=== PATIENT | male | born 1960 | race Caucasian/White ===

== ENCOUNTER 2020-06-17 00:50 | Inpatient (IN) ==
[2020-06-17] MEDS ORDERED: 0.9 % Sodium Chloride 1,000 ML IVC ONE ×2 (00:59→03:20)
[2020-06-17 01:24] LABS: ABG Base Excess -5 mEq/L (-2 to 3); ABG HCO3 18 mEq/L (21-27); ABG Oxygen Saturation 96 % (95-98); ABG PCO2 29 mmHg (35-45); ABG PH 7.41 pH Units (7.32-7.45); ABG PO2 79 mmHg (85-104); ABG TCO2 19 mEq/L (20-26)
[2020-06-17 01:39] LABS: INR 1.2; Prothrombin Time 13.9 Seconds (9.4-12.1)
[2020-06-17 01:49] LABS: Basophils # 0.1 K/mcL (0.0-0.2); Basophils % 0.7 %; Eosinophils # 0.1 K/mcL (0.0-0.6); Eosinophils % 0.7 %; Hematocrit 48.3 % (37.5-50.1); Hemoglobin 17.1 g/dL (12.9-16.9); Immature Granulocytes % 0.4 % (0-4); Lymphocytes # 1.3 K/mcL (0.6-4.6); Lymphocytes % 11.3 %; Mean Corpuscular HGB Conc 35.4 g/dL (31.6-35.5); Mean Corpuscular Hemoglobin 30.5 pg (28.0-33.3); Mean Corpuscular Volume 86.3 fL (83.0-100.0); Mean Platelet Volume 10.4 fL (9.4-12.4); Monocytes # 0.5 K/mcL (0.0-1.3); Monocytes % 4.6 %; Neutrophils # 9.2 K/mcL (1.6-8.9); Platelet Count 399 K/mcL (140-400); Red Cell Distribution Width 13.4 % (11.5-14.5); Segmented Neutrophils % 82.3 %; White Blood Count 11.2 K/mcL (4.3-11.1)
[2020-06-17 01:51] LABS: Troponin I 0.03 ng/mL (< 0.04)
[2020-06-17 01:56] LABS: Alanine Aminotransferase 12 Units/L (7-52); Albumin/Globulin Ratio 0.9 (1.1-2.2); Alkaline Phosphatase 126 Units/L (34-104); Aspartate Amino Transferase 11 Units/L (13-39); BUN/Creatinine Ratio 9 (6-26); Bilirubin,Direct 0.2 mg/dL (0.0-0.2); Bilirubin,Indirect 0.5 mg/dL (0.0-1.0); Bilirubin,Total 0.7 mg/dL (0.3-1.0); Blood Urea Nitrogen 24 mg/dL (8-23); Calcium 10.3 mg/dL (8.6-10.3); Carbon Dioxide 23 mEq/L (23-29); Chloride 89 mEq/L (98-107); Ethanol < 10 mg/dL (Less than 10); Globulin 4.7 g/dL (2.4-3.5); Glucose 144 mg/dL (70-105); Lipase 122 Units/L (11-82); Osmolality,Calculated 271 (280-300); Potassium 3.3 mEq/L (3.5-5.1); Sodium 127 mEq/L (136-145); Total Protein 8.7 g/dL (6.4-8.9); eGFR For African Americans 32 (> 60); eGFR For Non-African Americans 26 (> 60)
[2020-06-17] MEDS ORDERED: Potassium Chloride Elixir 20 MEQ/15 ML UDC PO ONE (03:20)
[2020-06-17 03:45] LABS: Bilirubin,Urine Small (Negative); Blood,Urine Trace-intact (Negative); Clarity,Urine Cloudy (Clear); Color,Urine Dark Yellow (Yellow); Glucose,Urine (UA) Normal (Normal); Ketones,Urine Trace mg/dL (Negative); Leukocyte Esterase,Urine Negative (Negative); Nitrite,Urine Negative (Negative); PH,Urine 5.5 pH Units (5.0-8.0); Protein,Urine >=300 mg/dL (Neg-Trace); Specific Gravity,Urine >= 1.030 (1.010-1.025); Urobilinogen,Urine Normal (Normal)
[2020-06-17] MEDS ORDERED: 0.9 % Sodium Chloride 1,000 ML IVC SCH ×2 (03:45→05:23)
[2020-06-17 03:53] LABS: Broad Casts,Urine Few per lpf (None Seen); Granular Casts,Urine Few per lpf (None Seen)
[2020-06-17 03:54] LABS: Bacteria,Urine Many per hpf (None-Few); Squamous Epithelial Cell,Urine Moderate per hpf (None-Few)
[2020-06-17 03:59] LABS: Hyaline Casts,Urine Few per lpf (None Seen); Renal Epithelial Cells,Urine Few per hpf (None-Few); Transitional Epi Cells,Urine Few per hpf (None-Few)
[2020-06-17 04:03] LABS: Mucus,Urine Moderate per lpf (None-Few); RBC,Urine 0-3 per hpf (0-3); WBC,Urine 0-3 per hpf (0-3)
[2020-06-17 04:07] LABS: Amphetamine Screen,Urine Positive ng/mL (Cutoff=1000); Barbiturate Screen,Urine Negative ng/mL (Cutoff=200); Benzodiazepines Screen,Urine Negative ng/mL (Cutoff=200); Cannabinoid Screen,Urine Negative ng/mL (Cutoff = 50); Cocaine Screen,Urine Negative ng/mL (Cutoff= 300); Opiate Screen,Urine Negative ng/mL (Cutoff=300); Phencyclidine Screen,Urine Negative ng/mL (Cutoff=25)
[2020-06-17] MEDS ORDERED: Naloxone 0.4 MG/ML INJ IVP PRN ×2 (05:23→08:36)
[2020-06-17] MEDS ORDERED: Ondansetron 4 MG/2 ML VIAL IVP PRN (05:23)
[2020-06-17] MEDS: Acetaminophen 325 MG TABLET PO PRN ×2 (05:53→20:15)
[2020-06-17] MEDS ORDERED: *HR* LORazepam 2 MG/ML VIAL IVP PRN (08:36)
[2020-06-17] MEDS: 0.9 % Sodium Chloride 1,000 ML IVC SCH ×5 (09:13→23:13)
[2020-06-17] MEDS: Folic Acid 1 MG TABLET PO SCH (09:17)
[2020-06-17] MEDS: THIAMINE IVPB SCH (09:23)
[2020-06-17] MEDS: SODIUM CHLORIDE 0.9% IVPB SCH (09:23)
[2020-06-17 14:05] LABS: Calcium 9.6 mg/dL (8.6-10.3); Phosphorous 3.6 mg/dL (2.7-4.5)
[2020-06-17] MEDS: *HR* Heparin 5,000 UNIT/ML VIAL SQ SCH ×2 (14:26→20:09)
[2020-06-17 17:08] LABS: ABG Base Excess 0 mEq/L (-2 to 3); ABG HCO3 24 mEq/L (21-27); ABG Oxygen Saturation 95 % (95-98); ABG PCO2 33 mmHg (35-45); ABG PH 7.46 pH Units (7.32-7.45); ABG PO2 71 mmHg (85-104); ABG TCO2 25 mEq/L (20-26)
[2020-06-18] MEDS: *HR* Heparin 5,000 UNIT/ML VIAL SQ SCH ×3 (05:06→20:17)
[2020-06-18] MEDS: 0.9 % Sodium Chloride 1,000 ML IVC SCH ×4 (06:18→16:13)
[2020-06-18 07:59] LABS: Basophils # 0.1 K/mcL (0.0-0.2); Basophils % 1.6 %; Eosinophils # 0.2 K/mcL (0.0-0.6); Eosinophils % 2.8 %; Hematocrit 38.7 % (37.5-50.1); Immature Granulocytes % 0.1 % (0-4); Lymphocytes # 2.2 K/mcL (0.6-4.6); Lymphocytes % 32.7 %; Mean Corpuscular HGB Conc 33.9 g/dL (31.6-35.5); Mean Corpuscular Volume 88.6 fL (83.0-100.0); Mean Platelet Volume 10.5 fL (9.4-12.4); Monocytes # 0.5 K/mcL (0.0-1.3); Monocytes % 6.9 %; Neutrophils # 3.8 K/mcL (1.6-8.9); Platelet Count 297 K/mcL (140-400); Red Blood Count 4.37 M/mcL (4.19-5.50); Red Cell Distribution Width 13.7 % (11.5-14.5); Segmented Neutrophils % 55.9 %; White Blood Count 6.8 K/mcL (4.3-11.1)
[2020-06-18 08:18] LABS: Hemoglobin 13.1 g/dL (12.9-16.9)
[2020-06-18 08:23] LABS: Potassium 4.2 mEq/L (3.5-5.1)
[2020-06-18 08:24] LABS: Albumin 2.9 g/dL (3.5-5.7); Albumin/Globulin Ratio 0.9 (1.1-2.2); Bilirubin,Total 0.4 mg/dL (0.3-1.0); Calcium 8.6 mg/dL (8.6-10.3); Globulin 3.1 g/dL (2.4-3.5)
[2020-06-18] MEDS: SODIUM CHLORIDE 0.9% IVPB SCH (08:39)
[2020-06-18] MEDS: THIAMINE IVPB SCH (08:39)
[2020-06-18] MEDS: Folic Acid 1 MG TABLET PO SCH (08:42)
[2020-06-18] MEDS: Aspirin Enteric Coated 81 MG Tablet PO SCH (08:42)
[2020-06-18] MEDS: Finasteride 5 MG TABLET PO SCH (08:43)
[2020-06-18] MEDS ORDERED: Nicotine 2 MG GUM BC PRN (15:36)
[2020-06-18] MEDS: Acetaminophen 325 MG TABLET PO PRN (20:17)
[2020-06-18 21:57] LABS: Protein/Creatinine Ratio,Urine 0.29 mg/mg (0.00-0.20)
[2020-06-19] MEDS: 0.9 % Sodium Chloride 1,000 ML IVC SCH ×3 (02:06→21:07)
[2020-06-19] MEDS: *HR* Heparin 5,000 UNIT/ML VIAL SQ SCH ×3 (06:22→20:27)
[2020-06-19 07:21] LABS: Albumin/Globulin Ratio 0.9 (1.1-2.2); Bilirubin,Total 0.4 mg/dL (0.3-1.0); Calcium 8.7 mg/dL (8.6-10.3); Globulin 3.3 g/dL (2.4-3.5); Potassium 4.2 mEq/L (3.5-5.1); Total Protein 6.3 g/dL (6.4-8.9)
[2020-06-19] MEDS: THIAMINE IVPB SCH (07:56)
[2020-06-19] MEDS: SODIUM CHLORIDE 0.9% IVPB SCH (07:56)
[2020-06-19] MEDS: Finasteride 5 MG TABLET PO SCH (08:01)
[2020-06-19] MEDS: Folic Acid 1 MG TABLET PO SCH (08:01)
[2020-06-19] MEDS: Aspirin Enteric Coated 81 MG Tablet PO SCH (08:01)
[2020-06-19] MEDS ORDERED: hydrALAZINE 25 MG TABLET PO SCH (08:52)
[2020-06-19] MEDS ORDERED: Metoprolol 100 MG TABLET PO SCH (09:00)
[2020-06-19] MEDS: amLODIPine 5 MG TABLET PO SCH (09:47)
[2020-06-19] MEDS ORDERED: *HR* LORazepam 1 MG TABLET PO ONE (11:38)
[2020-06-19] MEDS: Isosorbide MONOnitrate (24 HR) 30 MG TAB.ER.24H PO SCH (12:01)
[2020-06-19] MEDS: hydrALAZINE 25 MG TABLET PO SCH ×2 (15:35→23:50)
[2020-06-19] MEDS ORDERED: Haloperidol Lactate 5 MG/ML VIAL IM PRN (16:09)
[2020-06-19] MEDS ORDERED: *HR* LORazepam 2 MG/ML VIAL IVP ONE (16:12)
[2020-06-19] MEDS ORDERED: *HR* LORazepam 2 MG/ML VIAL IVP PRN (16:13)
[2020-06-19] MEDS: Gabapentin 300 MG CAPSULE PO SCH ×2 (16:40→20:27)
[2020-06-19] MEDS: Ringers Solution, Lactated 1,000 ML IVC SCH (16:44)
[2020-06-20] MEDS: *HR* Heparin 5,000 UNIT/ML VIAL SQ SCH ×3 (05:12→20:29)
[2020-06-20] MEDS: Ringers Solution, Lactated 1,000 ML IVC SCH (05:12)
[2020-06-20 05:47] LABS: Albumin 3.2 g/dL (3.5-5.7); Albumin/Globulin Ratio 0.9 (1.1-2.2); Bilirubin,Total 0.7 mg/dL (0.3-1.0); Calcium 9.2 mg/dL (8.6-10.3); Globulin 3.5 g/dL (2.4-3.5); Potassium 3.7 mEq/L (3.5-5.1); Total Protein 6.7 g/dL (6.4-8.9)
[2020-06-20] MEDS: Isosorbide MONOnitrate (24 HR) 30 MG TAB.ER.24H PO SCH (09:32)
[2020-06-20] MEDS: Thiamine (B-1) 100 MG TABLET PO SCH (09:32)
[2020-06-20] MEDS: amLODIPine 5 MG TABLET PO SCH (09:33)
[2020-06-20] MEDS: Aspirin Enteric Coated 81 MG Tablet PO SCH (09:33)
[2020-06-20] MEDS: hydrALAZINE 25 MG TABLET PO SCH ×3 (09:33→23:25)
[2020-06-20] MEDS: Finasteride 5 MG TABLET PO SCH (09:33)
[2020-06-20] MEDS: Folic Acid 1 MG TABLET PO SCH (09:33)
[2020-06-20] MEDS: Gabapentin 300 MG CAPSULE PO SCH (20:29)
[2020-06-21] MEDS: *HR* Heparin 5,000 UNIT/ML VIAL SQ SCH ×3 (05:43→21:08)
[2020-06-21] MEDS: Aspirin Enteric Coated 81 MG Tablet PO SCH (08:42)
[2020-06-21] MEDS: Isosorbide MONOnitrate (24 HR) 30 MG TAB.ER.24H PO SCH (08:42)
[2020-06-21] MEDS: Finasteride 5 MG TABLET PO SCH (08:42)
[2020-06-21] MEDS: Thiamine (B-1) 100 MG TABLET PO SCH (08:42)
[2020-06-21] MEDS: amLODIPine 5 MG TABLET PO SCH (08:42)
[2020-06-21] MEDS: Folic Acid 1 MG TABLET PO SCH (08:42)
[2020-06-21] MEDS: hydrALAZINE 25 MG TABLET PO SCH ×3 (08:42→23:31)
[2020-06-21] MEDS: Acetaminophen 325 MG TABLET PO PRN ×2 (08:43→23:31)
[2020-06-21] MEDS ORDERED: polyethylene glycoL 3350 17 GM POWD.PACK PO ONE (09:00)
[2020-06-21] MEDS ORDERED: Isosorbide MONOnitrate (24 HR) 30 MG TAB.ER.24H PO ONE (09:03)
[2020-06-21 09:32] LABS: Basophils # 0.1 K/mcL (0.0-0.2); Basophils % 1.6 %; Eosinophils # 0.3 K/mcL (0.0-0.6); Eosinophils % 4.6 %; Hematocrit 41.1 % (37.5-50.1); Immature Granulocytes % 0.2 % (0-4); Lymphocytes # 1.8 K/mcL (0.6-4.6); Lymphocytes % 28.1 %; Mean Corpuscular HGB Conc 34.1 g/dL (31.6-35.5); Mean Corpuscular Hemoglobin 30.1 pg (28.0-33.3); Mean Corpuscular Volume 88.4 fL (83.0-100.0); Mean Platelet Volume 10.6 fL (9.4-12.4); Monocytes # 0.4 K/mcL (0.0-1.3); Monocytes % 6.4 %; Neutrophils # 3.7 K/mcL (1.6-8.9); Platelet Count 293 K/mcL (140-400); Red Blood Count 4.65 M/mcL (4.19-5.50); Red Cell Distribution Width 13.6 % (11.5-14.5); Segmented Neutrophils % 59.1 %; White Blood Count 6.3 K/mcL (4.3-11.1)
[2020-06-21 09:44] LABS: Albumin 3.3 g/dL (3.5-5.7); Albumin/Globulin Ratio 0.9 (1.1-2.2); Bilirubin,Total 0.5 mg/dL (0.3-1.0); Calcium 9.2 mg/dL (8.6-10.3); Globulin 3.6 g/dL (2.4-3.5); Magnesium 1.7 mg/dL (1.6-2.6); Potassium 3.4 mEq/L (3.5-5.1); Total Protein 6.9 g/dL (6.4-8.9)
[2020-06-21] MEDS ORDERED: Ringers Solution, Lactated 1,000 ML IVC ONE (11:54)
[2020-06-21] MEDS ORDERED: hydrALAZINE 25 MG TABLET PO SCH (16:00)
[2020-06-21] MEDS: Gabapentin 300 MG CAPSULE PO SCH (21:07)
[2020-06-22] MEDS: hydrALAZINE 25 MG TABLET PO SCH ×4 (05:29→23:44)
[2020-06-22] MEDS: *HR* Heparin 5,000 UNIT/ML VIAL SQ SCH ×3 (05:30→20:49)
[2020-06-22] MEDS: Acetaminophen 325 MG TABLET PO PRN (09:20)
[2020-06-22] MEDS: Aspirin Enteric Coated 81 MG Tablet PO SCH (09:20)
[2020-06-22] MEDS: Thiamine (B-1) 100 MG TABLET PO SCH (09:20)
[2020-06-22] MEDS: Folic Acid 1 MG TABLET PO SCH (09:21)
[2020-06-22] MEDS: Finasteride 5 MG TABLET PO SCH (09:21)
[2020-06-22] MEDS: amLODIPine 5 MG TABLET PO SCH (09:21)
[2020-06-22] MEDS: Isosorbide MONOnitrate (24 HR) 60 MG TAB.ER.24H PO SCH (09:21)
[2020-06-22] MEDS: Gabapentin 300 MG CAPSULE PO SCH (20:49)
[2020-06-23] MEDS: hydrALAZINE 25 MG TABLET PO SCH ×4 (05:47→23:17)
[2020-06-23] MEDS: *HR* Heparin 5,000 UNIT/ML VIAL SQ SCH ×3 (05:47→20:30)
[2020-06-23] MEDS: Aspirin Enteric Coated 81 MG Tablet PO SCH (08:25)
[2020-06-23] MEDS: Acetaminophen 325 MG TABLET PO PRN (08:26)
[2020-06-23] MEDS: Finasteride 5 MG TABLET PO SCH (08:26)
[2020-06-23] MEDS: amLODIPine 5 MG TABLET PO SCH (08:26)
[2020-06-23] MEDS: Folic Acid 1 MG TABLET PO SCH (08:26)
[2020-06-23] MEDS: Thiamine (B-1) 100 MG TABLET PO SCH (08:26)
[2020-06-23] MEDS: Isosorbide MONOnitrate (24 HR) 60 MG TAB.ER.24H PO SCH (08:26)
[2020-06-23] MEDS: Gabapentin 300 MG CAPSULE PO SCH (20:30)
[2020-06-24] MEDS: *HR* Heparin 5,000 UNIT/ML VIAL SQ SCH (06:30)
[2020-06-24] MEDS: hydrALAZINE 25 MG TABLET PO SCH ×2 (07:02→13:14)
[2020-06-24 08:02] LABS: Calcium 8.9 mg/dL (8.6-10.3); Potassium 3.9 mEq/L (3.5-5.1)
[2020-06-24] MEDS: Aspirin Enteric Coated 81 MG Tablet PO SCH (09:10)
[2020-06-24] MEDS: Finasteride 5 MG TABLET PO SCH (09:10)
[2020-06-24] MEDS: Acetaminophen 325 MG TABLET PO PRN (09:10)
[2020-06-24] MEDS: Thiamine (B-1) 100 MG TABLET PO SCH (09:10)
[2020-06-24] MEDS: amLODIPine 5 MG TABLET PO SCH (09:10)
[2020-06-24] MEDS: Folic Acid 1 MG TABLET PO SCH (09:10)
[2020-06-24] MEDS: Isosorbide MONOnitrate (24 HR) 60 MG TAB.ER.24H PO SCH (09:10)
[2020-06-24 10:16] VITALS: BP 125/81
[2020-06-24] MEDS ORDERED: FLU Vac QV 20-21 (6Month+)/PF 0.5 ML SYRINGE IM ONE (13:01)
== END 2020-06-24 15:00 | DRG 282 ==
LOC: EMEROOPIK 00:50 → INPPIK 00:50
PROVIDERS: ADMIT Family Medicine; ATTEND Family Medicine